=== PATIENT | female | born 1970 | race Caucasian/White ===

== ENCOUNTER 2016-05-13 10:48 | Inpatient (IN) | payer BC ==
--- NOTE | 2016-05-13 11:36 | ERNOTE ---
Dyspnea - General Presenting Symptoms: shortness of breath Time Seen by Provider: 05/13/16 11:14 Source: patient Exam Limitations: no limitations - Immun/Allergies/Home Medications Immunizations: IMMUNIZATION HX Immunizations Up to Date Yes History of Influenza Vaccine Yes Hx Pneumococcal Vaccination No Allergies/Adverse Reactions: Allergies nitrofurantoin macrocrystalline [From Macrodantin] Adverse Reaction (Mild, Verified 06/09/14 09:13) Vomiting Home Medications: HOME MEDICATIONS Albuterol Sulfate [Proair Hfa] 1 - 2 puff IH Q4H PRN 05/13/16 [Last Taken ] Cyclobenzaprine HCl [Flexeril] 10 mg PO TID PRN 05/13/16 [Last Taken 05/12/16 21 :00] Medroxyprogesterone Acetate [Depo-Provera] 400 mg IM Q3M 05/13/16 [Last Taken ] Meloxicam [Mobic] 7.5 mg PO BID 05/13/16 [Last Taken 05/13/16] Oxybutynin Chloride [Ditropan] 5 mg PO BID 05/13/16 [Last Taken 05/13/16] traMADol HCL [Ultram] 50 - 100 mg PO QID PRN 05/13/16 [Last Taken 05/13/16] - History of Present Illness Narrative: 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 She was able to go to work but was short of breath with minimal exertion, saw her PCP this morning who ordered a chest Xray that showed a large right sided pneumothorax and she was send to the ER. She denies any trauma, had a sinus infection two weeks ago that was treated with antibotics Date (Duration): 05/12/16 Time (Timing): 15:00 Severity: moderate Frequency of episodes: Reports: no prior episodes Modifying Factors - (Improves): Reports: rest Modifying Factors (Worsens): Reports: activity Associated Symptoms-Dyspnea: Reports: chest pain/discomfort. Denies: fever/ chills, cough, wheezing Prior Treatment: Reports: recently seen. Denies: currently on antibiotics Review of Systems - Review of Systems Constitutional: Present: recent illness. Absent: fever ENT: Absent: nose congestion Respiratory: Present: See HPI, shortness of breath, cough Cardiology: Present: chest pain - tightness Gastrointestinal/Abdominal: Absent: nausea, vomiting, abdominal pain Genitourinary: Present: no symptoms reported - Patient's Past Medical History Patient History - Medical: Arthritis, Chronic Pain, Other Patient History - Cardiac/Respiratory: Other Patient History - Cancer: No Hx of Cancer Patient History - Surgical Procedures: Other Patient History - Other: None - Family History Mother Family History - Medical: No pertinent hx Family History - Cardiac/Respiratory: No pertinent hx Family History - Cancer: Breast Father Family History - Medical: No pertinent hx, History Unknown Family History - Cardiac/Respiratory: No pertinent hx, History Unknown Family History - Cancer: No pertinent family hx, History Unknown - Social History Living Situations: home Abuse History: No History of abuse Psych History: No pertinent hx Smoking Status: Former smoker Alcohol Use: none Drug Use: none - Immunizations Immunizations Up to Date: Yes Hx Pneumococcal Vaccination: No History of Influenza Vaccine: Yes Physical Exam - Physical Exam General Appearance: Present: wd/wn Ears, Nose, Throat: Present: normal pharynx Respiratory: Present: no respiratory distress, lungs clear, decreased breath sounds - no breath sounds right chest Cardiovascular/Chest: Present: regular rate, rhythm, no murmur Gastrointestinal/Abdominal: Present: nondistended, soft Neurological Exam: Present: alert, oriented Skin Exam: Present: normal color, warm/dry ED Progress - Results and Orders Patient's Lab Results:: I have reviewed the patient's lab results. - Vital Signs Patient's Vital Signs:: I have reviewed the patient's vital signs. Vital Signs: Vital Signs 05/13/16 10:55 Pulse Rate 81 Respiratory 12 Rate Blood Pressure 148/47 O2 Sat by Pulse 96 Oximetry - EKG EKG: NSR, unchanged from - 09/03/13, other - no acute changes EKG read: Interp. by me - Progress/Reassessment Chief Complaint: Dyspnea Progress Note-Subjective: 05/13/16 11:[address] Andrews 05/13/16 12:25 chest tube inserted by Dr Andrews, will admit patient to his service patient comfortable 05/13/16 12:49 discussed repeat CXr with Dr Andrews Departure Clinical Impression: Spontaneous pneumothorax - Departure Disposition: [facility] Condition: Good
[2016-05-13] MEDS ORDERED: BUPIVACAINE HCL 50 ML VIAL IJ ONE (11:42)
[2016-05-13 11:47] LABS: Hematocrit 35.1 % (37.0-47.0); Hemoglobin 11.4 gm/dL (12.5-16.0); Mean Cell Volume 86.7 fl (78-100); Mean Corpuscular Hemoglobin 28.1 pg (27-31); Mean Corpuscular Hgb Conc 32.5 g/dl (32-36); Mean Platelet Volume 11.1 fl (6.0-9.5); Neutrophil # 4.2 K/mm3 (1.3-6.0); Platelet Count 208 K/mm3 (150-450); Red Blood Count 4.05 M/mm3 (4.2-5.4); Red Cell Distribution Width 13.4 % (11.5-14.0); White Blood Count 7.1 K/mm3 (4.0-10.5)
[2016-05-13] MEDS ORDERED: MORPHINE SULFATE 2 MG/ML DISP.SYRIN IV ONE (12:15)
[2016-05-13] MEDS ORDERED: MORPHINE SULFATE 2 MG/ML DISP.SYRIN ONE (12:16)
[2016-05-13] MEDS ORDERED: MORPHINE SULFATE 2 MG/ML DISP.SYRIN IV PRN (12:31)
[2016-05-13] MEDS ORDERED: MORPHINE SULFATE 4 MG/ML SYRG IV ONE (12:37)
[2016-05-13] MEDS ORDERED: MORPHINE SULFATE 4 MG/ML SYRG ONE (12:39)
[2016-05-13 12:47] LABS: ALT 18 U/L (19-67); AST 8 U/L (0-48); Albumin * 3.7 gm/dl (3.4-5.0); Alkaline Phosphatase * 67 U/L (50-170); Anion Gap 15.8 mmol/L (6.8-13.8); BUN/Creatinine Ratio 14.8 (9.0-21.6); Bilirubin, Total 0.3 mg/dL (0.0-1.1); Blood Urea Nitrogen 8 mg/dL (3-23); Ca. Corrected For Albumin 8.4 mg/dL (8.4-10.2); Calcium * 8.5 mg/dL (7.9-10.9); Chloride 109 mmol/L (97-106); Glucose * 95 mg/dL (70-110); Potassium 3.8 mmol/L (3.4-4.6); Sodium 143 mmol/L (132-142); Total Protein 6.4 gm/dL (6.2-8.2); Troponin I Less than 0.017 ng/ml (0.00-0.10)
--- NOTE | 2016-05-13 12:57 | OR ---
Operative Report - Dictated Report Narrative: OPERATIVE REPORT DATE OF OPERATION: 05/13/2016 PREOPERATIVE DIAGNOSIS: Complete right spontaneous pneumothorax POSTOPERATIVE DIAGNOSIS: Same (relieved) OPERATION: Insertion of right chest tube SURGEON: Boni Rivera MD ANESTHESIA: 0.5% Marcaine with epinephrine injected local INDICATIONS FOR PROCEDURE: The patient is a 45-year-old female who started feeling short of breath with right-sided chest pain yesterday. She presented to Dr. Walsh's office this morning and a chest x-ray demonstrates complete right pneumothorax. FINDINGS: Relief of the pneumothorax following insertion of the tube NARRATIVE OF PROCEDURE: A pre-procedural timeout was observed. With the patient in the recumbent position, the right chest was prepped with Betadine solution and a point chosen in the anterior axillary line for tube insertion. The skin, subcutaneous tissue, and periosteum of the chosen rib were anesthetized with 0.5% Marcaine with epinephrine. A 1 cm skin incision was made and the right chest was accessed with a 20 Palestinian catheter. The catheter was directed anteriorly and superiorly. There was egress of air. The tube was connected to underwater suction which demonstrated escape of air. The tube was then secured to the chest with a 0 silk suture and a dressing of 4 x 4's and Medipore tape applied. The patient tolerated the procedure well without complication. There were audible breath sounds on the right following the procedure and chest x-ray demonstrates reexpansion of the right lung. She was transferred to the floor awake and in stable condition. Reviewed and electronically signed
[2016-05-13] MEDS: oxyCODONE HCL/ACETAMINOPHEN 1 TAB TABLET PO PRN (16:22)
[2016-05-13] MEDS ORDERED: NALOXONE HCL 1 MG/1 ML SYRG IV PRN (17:37)
[2016-05-13] MEDS ORDERED: diphenhydrAMINE HCL 50 MG/ML VIAL IV PRN (17:37)
--- NOTE | 2016-05-13 17:53 | HP ---
Chief Complaint - Chief Complaint Date of Service: 05/13/16 Time of Service: 12:00 Chief Complaint: right pneumothorax History of Present Illness: Started having right sided chest discomfort and shortness of breath yesterday. Saw Dr Walsh and a CXR showed right pneumothorax. - Patient's Past Medical History Patient History - Medical: Arthritis, Chronic Pain, Other Patient History - Cardiac/Respiratory: Other - she fell and broke 2 ribs last year Patient History - Cancer: No Hx of Cancer Patient History - Surgical Procedures: Other Patient History - Other: None - Family History Mother Family History - Medical: No pertinent hx Family History - Cardiac/Respiratory: No pertinent hx Family History - Cancer: Breast Father Family History - Medical: No pertinent hx, History Unknown Family History - Cardiac/Respiratory: No pertinent hx, History Unknown Family History - Cancer: No pertinent family hx, History Unknown - Social History Living Situations: home Abuse History: No History of abuse Psych History: No pertinent hx Smoking Status: Former smoker Have you smoked in the past 12 months: No Do you dip or chew tobacco: No Patient requests Smoking Cessation Consult: No Initiate information on Smoking Cessation: No Alcohol Use: none Drug Use: none - Immunizations Immunizations Up to Date: Yes Hx Pneumococcal Vaccination: No History of Influenza Vaccine: Yes Review Of Systems (GEN) - Review of Systems EENTM: Present: No Symptoms Reported Respiratory: Present: Shortness of Breath, Other - vague chest discomfort Cardiac: Present: No Symptoms Reported Abdominal: Present: No Symptoms Reported Genitourinary: Present: No Symptoms Reported Musculoskeletal: Present: Other - chronic back discomfort Neurological: Present: No Symptoms Reported Skin: Present: No Symptoms Reported Immunizations: IMMUNIZATION HX Immunizations Up to Date Yes History of Influenza Vaccine Yes Hx Pneumococcal Vaccination No Allergies/Adverse Reactions: Allergies Allergy/AdvReac Type Severity Reaction Status Date / Time nitrofurantoin AdvReac Mild Vomiting Verified 06/09/14 09:13 macrocrystalline [From Macrodantin] Home Medications: HOME MEDICATIONS Albuterol Sulfate [Proair Hfa] 1 - 2 puff IH Q4H PRN 05/13/16 [Last Taken ] Cyclobenzaprine HCl [Flexeril] 10 mg PO TID PRN 05/13/16 [Last Taken 05/12/16 21 :00] Medroxyprogesterone Acetate [Depo-Provera] 400 mg IM Q3M 05/13/16 [Last Taken ] Meloxicam [Mobic] 7.5 mg PO BID 05/13/16 [Last Taken 05/13/16] Oxybutynin Chloride [Ditropan] 5 mg PO BID 05/13/16 [Last Taken 05/13/16] traMADol HCL [Ultram] 50 - 100 mg PO QID PRN 05/13/16 [Last Taken 05/13/16] Exam - Exam Vital Signs: Vital Signs - Last Taken Temp 36.6 C 05/13/16 13:31 Pulse 68 05/13/16 13:31 Resp 22 H 05/13/16 13:31 BP 126/69 05/13/16 13:31 Pulse Ox 91 05/13/16 13:31 Constitutional: Present: Alert, Oriented x3, Cooperative, Well developed, Well nourished, Mild distress ENT Exam: Present: normal ENT inspection Eye Exam: bilateral eye: normal inspection Neck: Present: full range of motion Back Exam: Present: normal inspection Breasts: Present: Exam deferred Respiratory: Present: other - absent breath sounds on the right with hyper- resonance to percussion Cardiovascular/Chest: Present: normal peripheral pulses, regular rate, rhythm, no murmur Peripheral Pulses: carotid (R): 4+, carotid (L): 4+, dorsalis-pedis (R): 4+, dorsalis-pedis (L): 4+, radial (R): 4+, radial (L): 4+ Abdomen: Present: soft, nontender, nondistended /Rectal: Present: Exam deferred Extremity: Present: normal range of motion, normal inspection. 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, normal cerebellar test, no motor/ sensory deficits Appearance: Present: appropriate appearance, appropriate insight, neat Eye contact: Present: cooperative, good eye contact, normal speech Thoughts: Present: normal thought pattern Diagnostic Studies: Laboratory Results WBC 7.1 K/mm3 (4.0-10.5) 05/13/16 11:37 RBC 4.05 M/mm3 (4.2-5.4) L 05/13/16 11:37 Hgb 11.4 gm/dL (12.5-16.0) L 05/13/16 11:37 Hct 35.1 % (37.0-47.0) L 05/13/16 11:37 MCV 86.7 fl (78-100) 05/13/16 11:37 MCH 28.1 pg (27-31) 05/13/16 11:37 MCHC 32.5 g/dl (32-36) 05/13/16 11:37 RDW 13.4 % (11.5-14.0) 05/13/16 11:37 Plt Count 208 K/mm3 (150-450) 05/13/16 11:37 MPV 11.1 fl (6.0-9.5) H 05/13/16 11:37 Immature Gran % (Auto) 0.30 % (0.001-0.429) 05/13/16 11:37 Immature Gran # (Auto) 0.02 K/mm3 (0.000-0.0310) 05/13/16 11:37 Neutrophils % 59.0 % (42-75.0) 05/13/16 11:37 Lymphocytes % 29.2 % (20-51) 05/13/16 11:37 Monocytes % 8.5 % (0.0-9) 05/13/16 11:37 Eosinophils % 2.4 % (0.0-3.0) 05/13/16 11:37 Basophils % 0.6 % (0.0-1.0) 05/13/16 11:37 Nucleated RBC % 0.0 k/mm3 (0-1) 05/13/16 11:37 Neutrophils # 4.2 K/mm3 (1.3-6.0) 05/13/16 11:37 Lymphocytes # 2.1 k/mm3 (1.5-3.5) 05/13/16 11:37 Monocytes # 0.6 k/mm3 (0.0-1.0) 05/13/16 11:37 Eosinophils # 0.2 k/mm3 (0.0-0.7) 05/13/16 11:37 Absolute Basophils 0.0 k/mm3 (0.0-0.1) 05/13/16 11:37 Sodium 143 mmol/L (132-142) H 05/13/16 11:37 Plasma Sodium 143 mmol/L (130-142) H 05/13/16 11:37 Potassium 3.8 mmol/L (3.4-4.6) 05/13/16 11:37 Chloride 109 mmol/L (97-106) H 05/13/16 11:37 Carbon Dioxide 22.0 mmol/L (24-32.6) L 05/13/16 11:37 Anion Gap 15.8 mmol/L (6.8-13.8) H 05/13/16 11:37 BUN 8 mg/dL (3-23) 05/13/16 11:37 Creatinine 0.54 mg/dL (0.4-1.4) 05/13/16 11:37 Est GFR (Non-Af Amer) 129 mL/min (60-130) D 05/13/16 11:37 BUN/Creatinine Ratio 14.8 (9.0-21.6) 05/13/16 11:37 Random Glucose 95 mg/dL (70-110) 05/13/16 11:37 Calcium 8.5 mg/dL (7.9-10.9) 05/13/16 11:37 Calcium Adj for Albumin 8.4 mg/dL (8.4-10.2) 05/13/16 11:37 Total Bilirubin 0.3 mg/dL (0.0-1.1) 05/13/16 11:37 AST 8 U/L (0-48) 05/13/16 11:37 ALT 18 U/L (19-67) L 05/13/16 11:37 Alkaline Phosphatase 67 U/L (50-170) 05/13/16 11:37 Troponin I Less than 0.017 ng/ml (0.00-0.10) 05/13/16 11:37 Total Protein 6.4 gm/dL (6.2-8.2) 05/13/16 11:37 Albumin 3.7 gm/dl (3.4-5.0) 05/13/16 11:37 CXR shows right pneumothorax Assessment/Plan - Assessment/Plan (1) Spontaneous pneumothorax Assessment: Explained the etiology of pneumothorax and treatment by chest tube placement. Consent obtained for placement of right chest tube. Will place in observation bed and re-check CXR in AM. Problem: Acute
[2016-05-13] MEDS ORDERED: ALBUTEROL SULFATE 60 PUFF INHALER IH PRN (18:38)
[2016-05-13] MEDS: HYDROmorphone HCL IN 0.9% NACL 50 ML CARTRIDGE IV PRN (18:51)
[2016-05-13] MEDS: ceFAZolin SODIUM 1 GM in DEXTROSE 5 % IN WATER 100 ML IV SCH ×4 (19:00→23:28)
[2016-05-13] MEDS: NORMAL SALINE 1,000 ML IV PRN (19:03)
[2016-05-13] MEDS: ONDANSETRON HCL/PF 2 MG/ML VIAL IV PRN (19:43)
[2016-05-13] MEDS ORDERED: OXYBUTYNIN CHLORIDE 5 MG TABLET PO SCH (21:00)
[2016-05-13] MEDS: SENNOSIDES/DOCUSATE SODIUM 1 TAB TABLET PO SCH (21:40)
[2016-05-13] MEDS: OXYBUTYNIN CHLORIDE 5 MG TABLET PO SCH (21:40)
[2016-05-14] MEDS: ONDANSETRON HCL/PF 2 MG/ML VIAL IV PRN ×3 (02:58→12:12)
[2016-05-14] MEDS: ceFAZolin SODIUM 1 GM in DEXTROSE 5 % IN WATER 100 ML IV SCH ×8 (05:04→23:27)
[2016-05-14] MEDS: OXYBUTYNIN CHLORIDE 5 MG TABLET PO SCH ×2 (09:03→21:10)
[2016-05-14] MEDS: ACETAMINOPHEN 500 MG TABLET PO PRN ×2 (09:07→23:24)
[2016-05-14] MEDS ORDERED: METOCLOPRAMIDE HCL 5 MG/ML VIAL IV ONE (09:22)
--- NOTE | 2016-05-14 09:48 | PN ---
Dictated Progress Note - Date and Time Seen: Date: 05/14/16 Time: 09:45 - Progress Note Narrative: Vital Signs - Last Taken Temp 36.7 C 05/14/16 07:59 Pulse 68 05/14/16 07:59 Resp 18 05/14/16 07:59 BP 98/58 05/14/16 07:59 Pulse Ox 92 05/14/16 07:59 VS have remained normal. Pain tolerable. Feels nauseated and has headache. Did pass gas and had stool yesterday/no heartburn or abdominal pain. CXR shows re-expansion and no obvious air leak. Reglan in addition to ordered Zofran. Will clamp chest tube and re-check xray at 1400.
--- NOTE | 2016-05-14 14:26 | PN ---
Dictated Progress Note - Date and Time Seen: Date: 05/14/16 Time: 14:24 - Progress Note Narrative: Vital Signs - Last Taken Temp 36.7 C 05/14/16 09:00 Pulse 68 05/14/16 09:00 Resp 18 05/14/16 09:00 BP 98/58 05/14/16 09:00 Pulse Ox 92 05/14/16 09:00 Has re-accumulated air with tube clamped. No distress. Tube returned to 20cm suction Will admit to acute status and re-check CXR in AM
[2016-05-14] MEDS: SENNOSIDES/DOCUSATE SODIUM 1 TAB TABLET PO SCH (21:10)
[2016-05-15] MEDS: ceFAZolin SODIUM 1 GM in DEXTROSE 5 % IN WATER 100 ML IV SCH ×8 (05:33→23:13)
[2016-05-15] MEDS: OXYBUTYNIN CHLORIDE 5 MG TABLET PO SCH ×2 (09:54→20:50)
[2016-05-15] MEDS: NORMAL SALINE 1,000 ML IV PRN (10:27)
[2016-05-15] MEDS: ACETAMINOPHEN 500 MG TABLET PO PRN (10:27)
[2016-05-15] MEDS: ONDANSETRON HCL/PF 2 MG/ML VIAL IV PRN (12:04)
--- NOTE | 2016-05-15 13:29 | PN ---
Dictated Progress Note - Date and Time Seen: Date: 05/15/16 Time: 13:26 - 2nd visit; sleeping on first visit - Progress Note Narrative: Vital Signs - Last Taken Temp 36.7 C 05/15/16 11:25 Pulse 87 05/15/16 11:25 Resp 18 05/15/16 11:25 BP 124/67 05/15/16 11:25 Pulse Ox 99 05/15/16 11:25 Tube apparently kinked last night. Functioning well currently with no obvious air leak clinically, however still apical pneumothorax on AM CXR. Will add 02 and re-check CXR in AM. Explained again about pneumothorax/ treatment and possible need for referral for VAT if leak does not seal.
[2016-05-15] MEDS: SENNOSIDES/DOCUSATE SODIUM 1 TAB TABLET PO SCH (20:50)
[2016-05-16] MEDS: ceFAZolin SODIUM 1 GM in DEXTROSE 5 % IN WATER 100 ML IV SCH ×6 (05:13→17:18)
[2016-05-16] MEDS: NORMAL SALINE 1,000 ML IV PRN (05:13)
[2016-05-16] MEDS: OXYBUTYNIN CHLORIDE 5 MG TABLET PO SCH ×2 (08:46→20:42)
--- NOTE | 2016-05-16 09:57 | PN ---
Dictated Progress Note - Date and Time Seen: Date: 05/16/16 Time: 11:00 - Progress Note Narrative: Vital Signs - Last Taken Temp 37.0 C 05/16/16 07:06 Pulse 73 05/16/16 07:06 Resp 18 05/16/16 07:06 BP 128/78 05/16/16 07:06 Pulse Ox 100 05/16/16 07:06 VS have remained normal. Sa02 100% on supplemental O2. Although there was no air leak clinically on tube exam, she has re-accumulated pneumothorax after tube clamped. Will require eval at [facility] re need for VAT. Will call to arrange transfer.
--- NOTE | 2016-05-16 11:44 | DS ---
Transfer Discharge Summary - Diagnosis(s)/Problems (1) Spontaneous pneumothorax Problem: Acute - Course Description of Stay: 20 fr chest tube inserted right chest in ER with re-expansion of the right lung. VS remained stable. 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 The tube was maintained on suction until no clinical evidence of air leak on observation, however she re-accumulated pneumothorax on trial clamp. Suction re-established, but she has again failed off suction/clamp trial. Discussed case with [facility] in [place] and she will be transferred there for further management possibly including VAT. Procedures Performed: see notes below - right chest tube - Medications Medications: Active Medications Acetaminophen (Tylenol) 1,000 mg PO Q6H PRN PRN Reason: Mild pain Stop: 06/12/16 12:32 Last Admin: 05/15/16 10:27 Dose: 1,000 mg Albuterol Sulfate (Ventolin Hfa) 2 puff IH Q4H PRN PRN Reason: Shortness Of Breath Stop: 06/12/16 18:39 Last Admin: 05/14/16 23:04 Dose: 2 puff Hydromorphone/Sodium Chloride (Dilaudid 0.2 Mg/Ml Facility Administrator Cassette) 0 ml IV PRN PRN ; Protocol PRN Reason: Severe Pain Stop: 06/12/16 17:38 Last Admin: 05/13/16 18:51 Dose: 50 ml Cefazolin Sodium 1 gm/ (Dextrose/Water) 110 mls @ 200 mls/hr IV Q6H SAIGE PRN Reason: Protocol Stop: 06/12/16 18:01 Last Admin: 05/16/16 11:17 Dose: 200 mls/hr Sodium Chloride (Sodium Chloride 0.9%) 1,000 mls @ 30 mls/hr IV .Q24H PRN PRN Reason: HYDRATION Stop: 06/12/16 18:52 Last Admin: 05/16/16 05:13 Dose: 30 mls/hr Ondansetron HCl (Zofran) 4 mg IV Q4H PRN PRN Reason: Nausea And Vomiting Stop: 06/12/16 12:32 Last Admin: 05/15/16 12:04 Dose: 4 mg Oxybutynin Chloride (Ditropan) 5 mg PO BID [facility] Stop: 06/12/16 21:01 Last Admin: 05/16/16 08:46 Dose: 5 mg Oxycodone/Acetaminophen (Percocet 5 Mg/325 Mg) 2 tab PO Q4H PRN PRN Reason: Moderate Pain Stop: 06/12/16 12:32 Last Admin: 05/13/16 16:22 Dose: 2 tab Senna/Docusate Sodium (Senokot-S) 2 tab PO HS SAIGE Stop: 06/12/16 21:01 Last Admin: 05/15/16 20:50 Dose: 2 tab Discontinued Medications Metoclopramide HCl (Reglan) 10 mg IV ONCE ONE Stop: 05/14/16 09:23 Last Admin: 05/14/16 09:38 Dose: 10 mg Morphine Sulfate (Morphine Sulfate) 2 mg IV ONCE ONE Stop: 05/13/16 12:16 Last Admin: 05/13/16 12:17 Dose: 2 mg Morphine Sulfate (Morphine Sulfate) 2 mg IV Q15M PRN PRN Reason: Severe Pain Stop: 06/12/16 12:32 Last Admin: 05/13/16 13:57 Dose: 2 mg Morphine Sulfate (Morphine Sulfate) 4 mg IV ONCE ONE Stop: 05/13/16 12:38 Last Admin: 05/13/16 12:43 Dose: 4 mg Oxybutynin Chloride (Ditropan) 5 mg PO BID [facility] Stop: 06/12/16 21:01 Last Admin: 05/13/16 21:48 Dose: Not Given - Disposition Disposition: Other health care facility Condition: Good Discharge Date: 05/18/16
[2016-05-16] MEDS: SENNOSIDES/DOCUSATE SODIUM 1 TAB TABLET PO SCH (20:42)
[2016-05-17] MEDS: ceFAZolin SODIUM 1 GM in DEXTROSE 5 % IN WATER 100 ML IV SCH ×8 (00:06→18:22)
[2016-05-17] MEDS: OXYBUTYNIN CHLORIDE 5 MG TABLET PO SCH ×2 (08:36→22:03)
--- NOTE | 2016-05-17 17:48 | PN ---
Dictated Progress Note - Date and Time Seen: Date: 05/17/16 Time: 17:46 - Progress Note Narrative: Vital Signs - Last Taken Temp 36.7 C 05/17/16 14:58 Pulse 79 05/17/16 16:29 Resp 18 05/17/16 14:58 BP 106/79 05/17/16 14:58 Pulse Ox 96 05/17/16 16:29 VS have remained normal. 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 Tolerating PO well. Stooled yesterday and passed gas today. Clinically today there is an air leak on observation of Pleurovac off suction. Awaiting a bed at [facility].
[2016-05-17] MEDS: NORMAL SALINE 1,000 ML IV PRN (19:40)
[2016-05-17] MEDS: HYDROmorphone HCL IN 0.9% NACL 50 ML CARTRIDGE IV PRN (19:44)
[2016-05-17] MEDS: SENNOSIDES/DOCUSATE SODIUM 1 TAB TABLET PO SCH (22:03)
[2016-05-18] MEDS: ceFAZolin SODIUM 1 GM in DEXTROSE 5 % IN WATER 100 ML IV SCH ×6 (00:21→13:50)
[2016-05-18] MEDS: OXYBUTYNIN CHLORIDE 5 MG TABLET PO SCH (09:43)
[2016-05-18] MEDS: oxyCODONE HCL/ACETAMINOPHEN 1 TAB TABLET PO PRN (09:46)
[2016-05-18 15:43] VITALS: BP 117/56
== END 2016-05-18 14:45 | disposition short-term general hospital (02) | DRG 201 ==
LOC: ER 10:48 → MS 12:27 → OBSVTOIN 05-14 14:22
PROVIDERS: ADMIT Surgery; ATTEND Surgery
PROC: 0W9930Z Drainage of Right Pleural Cavity with Drainage Device, Percutaneous Approach (ICD-10-PCS; principal; 2016-05-13)
DX: J93.83 Other pneumothorax (principal); Z87.891 Personal history of nicotine dependence
CPT/HCPCS: 32551; 36415; 71010; 80053; 84484; 85025; 93005; 96374; 99284; G0378